=== PATIENT | male | born 1995 | race African-American/Black ===

== ENCOUNTER 2018-11-07 21:24 | Emergency (ER) | payer SELFPAY ==
[~2018-11-07] VITALS: Ht 175.3 cm; Wt 80.3 kg
[2018-11-07 21:31] VITALS: Ht 175.3 cm; Wt 80.3 kg
[2018-11-08 00:34] VITALS: BP 134/69
== END 2018-11-08 00:34 | disposition home or self-care (01) ==
LOC: ED 21:24
DX: S09.8XXA Other specified injuries of head, initial encounter (principal); Z90.89 Acquired absence of other organs; V43.52XA Car driver injured in collision with other type car in traffic accident, initial encounter; Y93.I9 Activity, other involving external motion; Y92.488 Other paved roadways as the place of occurrence of the external cause; Y99.8 Other external cause status
CPT/HCPCS: J1885